=== PATIENT | female | born 1980 | race Caucasian/White ===

== ENCOUNTER 2017-04-20 23:18 | Emergency (ER) | payer OTHER, BC ==
--- NOTE | 2017-04-20 23:21 | EDM.PDOC ---
ED HPI GENERAL MEDICAL PROBLEM - General Chief Complaint: Head Injury Stated Complaint: FALL/HIT HEAD Time Seen by Provider: 04/20/17 23:20 Source of Information: Reports: Patient - History of Present Illness INITIAL COMMENTS - FREE TEXT/NARRATIVE: HISTORY AND PHYSICAL: History of present illness: [Patient slipped on ice a couple hours prior to arrival, she fell straight back striking occiput on the ground she complains of 5 out of 10 headache diffuse with nausea no vomiting No fever vomiting chills sweats no chest pain shortness breath dizziness or palpitation no bowel or urine symptoms She does have a secondary complaint of left elbow pain No loss of consciousness ] Review of systems: As per history of present illness and below otherwise all systems reviewed and negative. Past medical history: As per history of present illness and as reviewed below otherwise noncontributory. Surgical history: As per history of present illness and as reviewed below otherwise noncontributory. Social history: No reported history of drug or alcohol abuse. Family history: As per history of present illness and as reviewed below otherwise noncontributory. Physical exam: HEENT: Atraumatic, normocephalic, pupils reactive, negative for conjunctival pallor or scleral icterus, mucous membranes moist, throat clear, neck supple, nontender, trachea midline. Lungs: Clear to auscultation, breath sounds equal bilaterally, chest nontender. Heart: S1S2, regular, negative for clicks, rubs, or JVD. Abdomen: Soft, nondistended, nontender. Negative for masses or hepatosplenomegaly. Negative for costovertebral tenderness. Pelvis: Stable nontender. Genitourinary: Deferred. Rectal: Deferred. Extremities: Atraumatic, negative for cords or calf pain. Neurovascular unremarkable. Neuro: Awake, alert, oriented. Cranial nerves II through XII unremarkable. Cerebellum unremarkable. Motor and sensory unremarkable throughout. Exam nonfocal. Diagnostics: [Head CT no contrast Left elbow complete Patient has history of total hysterectomy hence no hCG ] Therapeutics: patient decline Zofran Rest ice ibuprofen ] Impression: [Concussion Contusion elbow right] Definitive disposition and diagnosis as appropriate pending reevaluation and review of above. Location: Reports: Upper Extremity, Right Left Elbow Pain Score (Numeric/FACES): 7 frontal headache Pain Score (Numeric/FACES): 5 - Related Data Allergies Allergy/AdvReac Type Severity Reaction Status Date / Time No Known Allergies Allergy Verified 04/20/17 23:31 Home Meds: Home Meds . [No Known Home Meds] 05/26/14 [History] Social & Family History - Tobacco Use Smoking Status *Q: Current Every Day Smoker Years of Tobacco use: 15 Second Hand Smoke Exposure: No - Alcohol Use Days Per Week of Alcohol Use: 0 - Recreational Drug Use Recreational Drug Use: No ED ROS GENERAL - Review of Systems Review Of Systems: ROS reveals no pertinent complaints other than HPI. ED EXAM, HEAD INJURY - Physical Exam Exam: See Below Course - Vital Signs Last Recorded V/S: Last Vital Signs Temp 97.9 F 04/20/17 23:19 Pulse 94 04/20/17 23:19 Resp 18 04/20/17 23:19 BP 126/77 04/20/17 23:19 Pulse Ox 100 04/20/17 23:19 - Orders/Labs/Meds Orders: Active Orders 24 hr Category Date Time Status Elbow Min 3V Lt [CR] Stat Exams 04/20/17 23:31 Taken Head wo Cont [CT] Stat Exams 04/20/17 23:20 Taken Departure - Departure Time of Disposition: 23:57 Disposition: Home, Self-Care 01 Condition: Good Clinical Impression: Concussion with no loss of consciousness, Contusion - Discharge Information Referrals: Alanis Corrales MD [Primary Care Provider] - Forms: ED Department Discharge Additional Instructions: Rest Ice 20 minute intervals 3 times daily as needed Ibuprofen 400 mg to 800 mg 3 times daily 7-10 days Return if symptoms persist or worsen Follow-up with primary care in 2 weeks sooner as needed The following information is given to patients seen in the emergency department who are being discharged to home. This information is to outline your options for follow-up care. We provide all patients seen in our emergency department with a follow-up referral. The need for follow-up, as well as the timing and circumstances, are variable depending upon the specifics of your emergency department visit. If you don't have a primary care physician on staff, we will provide you with a referral. We always advise you to contact your personal physician following an emergency department visit to inform them of the circumstance of the visit and for follow-up with them and/or the need for any referrals to a consulting specialist. The emergency department will also refer you to a specialist when appropriate. This referral assures that you have the opportunity for follow-up care with a specialist. All of these measure are taken in an effort to provide you with optimal care, which includes your follow-up. Under all circumstances we always encourage you to contact your private physician who remains a resource for coordinating your care. When calling for follow-up care, please make the office aware that this follow-up is from your recent emergency room visit. If for any reason you are refused follow-up, please contact the [facility] emergency department at and asked to speak to the emergency department charge nurse. - My Orders Last 24 Hours: My Active Orders 04/20/17 23:20 Head wo Cont [CT] Stat 04/20/17 23:31 Elbow Min 3V Lt [CR] Stat - Assessment/Plan Last 24 Hours: My Active Orders 04/20/17 23:20 Head wo Cont [CT] Stat 04/20/17 23:31 Elbow Min 3V Lt [CR] Stat
[2017-04-20] MEDS ORDERED: Ibuprofen 400 MG Tab PO ONE (23:57)
[2017-04-21 00:13] VITALS: BP 125/73
--- NOTE | 2017-04-23 05:44 | CT ---
EXAM DATE: 04/20/17 PATIENT'S AGE: 36 Patient: HESHAM BISHOPWYANDANCH Facility: [place], [place] Site . Site : 1980 Study: CT Head WO CONT [id number] 11:48:47 PM Ordering Physician: Doctor Dobbs Final Report: INDICATION: FELL AND HIT BACK OF HEAD TONIGHT TECHNIQUE: CT Head without contrast. COMPARISON: None. FINDINGS: There is no sign of intracranial hemorrhage or mass effect. The correia-white differentiation is preserved. No abnormal intra-axial or extra-axial fluid collection. No acute disease of the visualized paranasal sinuses and mastoid air cells. No fracture evident. No scalp hematoma/laceration. IMPRESSION: No acute intracranial process. Dictated by: Rafy Collazo MD @ 04/20/2017 23:53:12 (Electronic Signature) Report Signed by Proxy. [facility], [place]
--- NOTE | 2017-04-23 05:45 | CR ---
EXAM DATE: 04/20/17 PATIENT'S AGE: 36 Patient: HESHAM QUINN Facility: [place], [place] Site . Site : 1980 Study: XRay Extremity Left ELBOW [id number] 11:49:16 PM Ordering Physician: Jordan Josue Final Report: INDICATION: Fell tonight, landed on left elbow TECHNIQUE: Elbow radiograph 3 views left COMPARISON: None FINDINGS: Bones: No acute fractures or aggressive bone lesions are identified. Joints: The elbow joint is unremarkable. No significant displacement of the anterior or posterior fat pads noted to suggest an effusion. Soft tissues: Unremarkable. No radiopaque foreign bodies are seen. IMPRESSION: 1. No acute osseous injuries or abnormalities are noted. Dictated by: Satinder Benitez MD @ 04/20/2017 23:51:08 (Electronic Signature) Report Signed by Proxy. JOSE MANUEL
== END 2017-04-21 00:14 | disposition home or self-care (01) ==
LOC: MW.ED 23:18
DX: S06.0X0A Concussion without loss of consciousness, initial encounter (principal); S50.01XA Contusion of right elbow, initial encounter; M25.522 Pain in left elbow; F17.210 Nicotine dependence, cigarettes, uncomplicated; W00.0XXA Fall on same level due to ice and snow, initial encounter
CPT/HCPCS: 70450; 73080; 99283; A9270